=== PATIENT | female | born 1965 | race Caucasian/White ===

== ENCOUNTER 2019-07-11 18:52 | Inpatient (IN) | payer MEDICAID ==
[~2019-07-11] VITALS: Ht 165.1 cm; Wt 38.8 kg
[~2019-07-11 18:52] MED LIST: IBUP-1955 PO; OXYC-132
[2019-07-11] MEDS ORDERED: IV NORMAL SALINE 1000 ML BAG IV ONE ×2 (19:15→20:00)
[2019-07-11 19:27] LABS: BASOPHILS % (AUTO) 0.2 % (0.0-2.0); EOSINOPHILS % (AUTO) 0.5 % (0.0-7.0); HEMATOCRIT 30.5 % (31.2-41.9); LYMPHOCYTES # (AUTO) 0.6 K/uL (20.0-40.0); LYMPHOCYTES % (AUTO) 7.2 % (20.5-51.5); MEAN CORPUSCULAR HEMOGLOBIN 29.6 uug (24.7-32.8); MEAN CORPUSCULAR HGB CONC 33 g/dL (32.3-35.6); MEAN CORPUSCULAR VOLUME 90.3 fL (75.5-95.3); MONOCYTES # (AUTO) 0.4 K/uL (2.0-10.0); MONOCYTES % (AUTO) 5.2 % (0.0-11.0); NEUTROPHILS # (AUTO) 7.5 K/uL (1.8-8.9); NEUTROPHILS % (AUTO) 86.9 % (38.5-71.5); PLATELET COUNT (AUTO) 273 K/uL (179-408); RED BLOOD CELL COUNT(AUTO) 3.38 MIL/uL (3.63-4.92); WHITE BLOOD COUNT (AUTO) 8.6 K/uL (3.8-11.8)
[2019-07-11 19:30] LABS: *BILIRUBIN,URIN NEGATIVE (NEGATIVE); *BLOOD, URINE 2+ (NEGATIVE); *CLARITY,URINE CLOUDY (CLEAR); *COLOR,URINE DARK YELLOW (YELLOW); *KETONES,URINE NEGATIVE (NEGATIVE); LEUKOCYTE ESTERASE ,URINE 1+ (NEGATIVE); NITRITE, URINE NEGATIVE (NEGATIVE); PH,URINE >=9.0 (5.0-8.0); UGLUCOSE NEGATIVE (NEGATIVE)
[2019-07-11 19:37] LABS: CREATININE 0.9 mg/dL (0.6-1.3); POTASSIUM 4.5 mmol/L (3.5-5.1)
[2019-07-11 19:42] LABS: BILIRUBIN,DIRECT 0.2 mg/dL (0.0-0.2); BILIRUBIN,TOTAL 0.6 mg/dL (0.2-1.0); TOTAL PROTEIN, SERUM 7.3 g/dL (6.4-8.2)
[2019-07-11 20:03] LABS: BACTERIA,URINE MANY /HPF (NONE SEEN); RBC,URINE 20-50 /HPF (0-3); SQUAMOUS EPITHELIAL CELL,UR FEW /HPF (NONE SEEN)
[2019-07-11 20:04] LABS: MUCUS,URINE MODERATE /LPF (0-FEW); TRIPLE PHOSPHATE CRYSTAL,UR FEW /HPF (NONE SEEN)
[2019-07-11] MEDS ORDERED: AMIN30LI2 PO (20:40)
[2019-07-11] MEDS ORDERED: MULT-213 PO (20:40)
[2019-07-11] MEDS ORDERED: BENZ1LOZ58 MM (20:40)
[2019-07-11] MEDS ORDERED: LORA-259 PO (20:40)
[2019-07-11] MEDS ORDERED: ASCO500C18 PO (20:40)
[2019-07-11] MEDS ORDERED: ACET325T53 PO (20:40)
[2019-07-11] MEDS ORDERED: LACT1CAP61 PO (20:40)
[2019-07-11] MEDS ORDERED: HYDR2TAB4 PO (20:40)
[2019-07-11] MEDS ORDERED: OXYC10TA49 PO (20:40)
[2019-07-11] MEDS ORDERED: MELO-107 PO (20:40)
[2019-07-11] MEDS ORDERED: ONDA4TAB5 PO (20:40)
[2019-07-11] MEDS ORDERED: GUAI100S9 PO (20:40)
[2019-07-11] MEDS ORDERED: CELE100C PO (20:40)
[2019-07-11] MEDS ORDERED: DIPH25CA83 PO (20:40)
[2019-07-11] MEDS ORDERED: CEFTRIAXONE 1 G in IV DEXTROSE 5% 50 ML IV ONE (20:45)
[2019-07-11] MEDS ORDERED: CEFTRIAXONE /D5W 50ML IVPB **ER PYXIS IV ONE (20:50)
[2019-07-11] MEDS ORDERED: ACETAMINOPHEN 325 MG TABLET PO PRN ×2 (21:00)
[2019-07-11] MEDS ORDERED: Medication Not On Formulary EA (Diphenhydramine Hcl (Benadryl) 25 MG) PO PRN (21:00)
[2019-07-11] MEDS ORDERED: HYDROMORPHONE 1 MG/1 ML DISP.SYRIN IV PRN (21:00)
[2019-07-11 21:30] VITALS: BP 106/59
[2019-07-11] MEDS ORDERED: diphenhydrAMINE 25 MG CAP PO PRN (21:45)
[2019-07-11] MEDS ORDERED: VANCOMYCIN IV 1,000 MG in IV DEXTROSE 5% 250 ML IV ONE (22:00)
[2019-07-11] MEDS: IV NS 1000 ML 1,000 ML IV PRN (22:01)
[2019-07-11] MEDS: ONDANSETRON 4 MG/2 ML VIAL IV PRN (22:07)
[2019-07-11] MEDS ORDERED: VANCOMYCIN 1000 MG VIAL ONE (23:10)
[2019-07-11] MEDS ORDERED: PIPERACILLIN/TAZOBACTAM/D5W 100 ML IV ONE (23:10)
[2019-07-11] MEDS: LORAZEPAM 1 MG TABLET PO PRN (23:56)
[2019-07-12 04:32] VITALS: BP 96/51
[2019-07-12] MEDS: PANTOPRAZOLE SODIUM 40 MG TABLET.DR PO SCH ×2 (06:10→06:12)
[2019-07-12] MEDS: PIPERACILLIN SODIUM/TAZOBACTAM 3.375 G in IV DEXTROSE 5% 50 ML IV SCH ×5 (06:32→21:08)
[2019-07-12 06:45] LABS: BASOPHILS % (AUTO) 0.5 % (0.0-2.0); EOSINOPHILS # (AUTO) 0.2 K/uL (0.0-0.7); EOSINOPHILS % (AUTO) 3.6 % (0.0-7.0); HEMOGLOBIN 9.1 g/dL (10.9-14.3); LYMPHOCYTES # (AUTO) 1.1 K/uL (20.0-40.0); LYMPHOCYTES % (AUTO) 19.7 % (20.5-51.5); MEAN CORPUSCULAR HEMOGLOBIN 29.1 uug (24.7-32.8); MEAN CORPUSCULAR HGB CONC 32 g/dL (32.3-35.6); MEAN CORPUSCULAR VOLUME 89.8 fL (75.5-95.3); MONOCYTES # (AUTO) 0.4 K/uL (2.0-10.0); MONOCYTES % (AUTO) 6.7 % (0.0-11.0); NEUTROPHILS # (AUTO) 3.8 K/uL (1.8-8.9); NEUTROPHILS % (AUTO) 69.5 % (38.5-71.5); PLATELET COUNT (AUTO) 233 K/uL (179-408); RED BLOOD CELL COUNT(AUTO) 3.12 MIL/uL (3.63-4.92); WHITE BLOOD COUNT (AUTO) 5.4 K/uL (3.8-11.8)
[2019-07-12 07:10] LABS: THYROID STIMULATING HORMONE 0.266 mIU/mL (0.358-3.740)
[2019-07-12 07:14] LABS: BILIRUBIN,TOTAL 0.4 mg/dL (0.2-1.0); CREATININE 0.9 mg/dL (0.6-1.3); MAGNESIUM 1.7 mg/dL (1.8-2.4); PHOSPHOROUS 3.3 mg/dL (2.5-4.9); POTASSIUM 4.2 mmol/L (3.5-5.1); TOTAL PROTEIN, SERUM 6.2 g/dL (6.4-8.2)
[2019-07-12] MEDS: PROTEIN SUPPLEMENT (PROSTAT) 30 ML LIQUID PO SCH ×2 (08:00→16:29)
[2019-07-12] MEDS: ACIDOPHILUS/BULGARICUS CHEW TAB PO SCH (08:10)
[2019-07-12] MEDS: MULTIVIT, IRON, MIN NO. 8, FA TABLET PO SCH (08:10)
[2019-07-12] MEDS: ASCORBIC ACID 500 MG TABLET PO SCH (08:10)
[2019-07-12] MEDS: CELECOXIB 100 MG CAPSULE PO SCH ×2 (08:10→16:46)
[2019-07-12] MEDS ORDERED: Medication Not On Formulary EA (Lactobacillus Acidophilus (Acidophilus) 1 EACH) PO SCH (09:00)
[2019-07-12] MEDS ORDERED: Medication Not On Formulary EA (Multivitamins W-Minerals (Multivitamin With Minerals) 1 PO SCH (09:00)
[2019-07-12] MEDS ORDERED: Medication Not On Formulary EA (Amino Acids/Protein Hydrolys (Pro-Stat Liquid) 30 ML) PO SCH (09:00)
[2019-07-12] MEDS ORDERED: Medication Not On Formulary EA (Ascorbic Acid (Vitamin C) 500 MG) PO SCH (09:00)
[2019-07-12] MEDS ORDERED: MAGNESIUM OXIDE 400 MG TABLET PO ONE (11:00)
[2019-07-12 11:12] VITALS: BP 122/68
[2019-07-12] MEDS: OXYCODONE HCL 5 MG TABLET PO PRN ×3 (11:19→23:13)
[2019-07-12] MEDS: IV NS 1000 ML 1,000 ML IV PRN (12:57)
[2019-07-12] MEDS: SOD FERRIC GLUC COMPLX/SUCROSE 125 MG in IV NORMAL SALINE 100 ML IV SCH (13:46)
[2019-07-12] MEDS: GUAIFENESIN SUGAR FREE 100 MG/5 ML UDC PO PRN (13:50)
[2019-07-12] MEDS: HYDROMORPHONE 1 MG/1 ML DISP.SYRIN IV PRN ×2 (14:41→21:07)
[2019-07-12 15:17] VITALS: BP 107/59
[2019-07-12 20:02] VITALS: BP 122/70
[2019-07-12] MEDS ORDERED: VANCOMYCIN IV 500 MG in IV DEXTROSE 5% 100 ML IV SCH (23:00)
[2019-07-13] MEDS: LORAZEPAM 1 MG TABLET PO PRN (00:29)
[2019-07-13] MEDS: IV NS 1000 ML 1,000 ML IV PRN ×2 (01:48→13:28)
[2019-07-13] MEDS: HYDROMORPHONE 1 MG/1 ML DISP.SYRIN IV PRN ×4 (03:44→22:56)
[2019-07-13 04:45] VITALS: BP 98/56
[2019-07-13] MEDS: PIPERACILLIN SODIUM/TAZOBACTAM 3.375 G in IV DEXTROSE 5% 50 ML IV SCH ×3 (05:19→21:15)
[2019-07-13] MEDS: PANTOPRAZOLE SODIUM 40 MG TABLET.DR PO SCH ×2 (06:20→06:28)
[2019-07-13] MEDS: OXYCODONE HCL 5 MG TABLET PO PRN ×3 (06:26→19:51)
[2019-07-13 06:53] LABS: BASOPHILS % (AUTO) 0.4 % (0.0-2.0); EOSINOPHILS # (AUTO) 0.5 K/uL (0.0-0.7); EOSINOPHILS % (AUTO) 10.6 % (0.0-7.0); HEMATOCRIT 25.7 % (31.2-41.9); HEMOGLOBIN 8.4 g/dL (10.9-14.3); LYMPHOCYTES # (AUTO) 0.8 K/uL (20.0-40.0); LYMPHOCYTES % (AUTO) 17.1 % (20.5-51.5); MEAN CORPUSCULAR HEMOGLOBIN 29.2 uug (24.7-32.8); MEAN CORPUSCULAR HGB CONC 33 g/dL (32.3-35.6); MEAN CORPUSCULAR VOLUME 89.9 fL (75.5-95.3); MONOCYTES # (AUTO) 0.3 K/uL (2.0-10.0); MONOCYTES % (AUTO) 7.3 % (0.0-11.0); NEUTROPHILS % (AUTO) 64.6 % (38.5-71.5); PLATELET COUNT (AUTO) 250 K/uL (179-408); RED BLOOD CELL COUNT(AUTO) 2.86 MIL/uL (3.63-4.92); WHITE BLOOD COUNT (AUTO) 4.7 K/uL (3.8-11.8)
[2019-07-13 07:04] LABS: CREATININE 0.8 mg/dL (0.6-1.3); MAGNESIUM 1.6 mg/dL (1.8-2.4); POTASSIUM 4.9 mmol/L (3.5-5.1)
[2019-07-13] MEDS ORDERED: MAGNESIUM OXIDE 400 MG TABLET PO ONE (07:45)
[2019-07-13] MEDS: PROTEIN SUPPLEMENT (PROSTAT) 30 ML LIQUID PO SCH ×2 (08:00→16:40)
[2019-07-13] MEDS: ASCORBIC ACID 500 MG TABLET PO SCH (09:16)
[2019-07-13] MEDS: ACIDOPHILUS/BULGARICUS CHEW TAB PO SCH (09:16)
[2019-07-13] MEDS: CELECOXIB 100 MG CAPSULE PO SCH ×2 (09:17→16:36)
[2019-07-13] MEDS: MULTIVIT, IRON, MIN NO. 8, FA TABLET PO SCH (09:17)
[2019-07-13] MEDS: ONDANSETRON 4 MG/2 ML VIAL IV PRN (10:45)
[2019-07-13 11:44] VITALS: BP 120/69
[2019-07-13] MEDS ORDERED: Z GUARD REMEDY PASTE 57 GM TUBE TOP PRN (12:45)
[2019-07-13] MEDS: SOD FERRIC GLUC COMPLX/SUCROSE 125 MG in IV NORMAL SALINE 100 ML IV SCH (13:41)
[2019-07-13 15:10] VITALS: BP 126/72
[2019-07-13 20:00] VITALS: BP 122/42
[2019-07-14] MEDS: LORAZEPAM 1 MG TABLET PO PRN
[2019-07-14] MEDS: IV NS 1000 ML 1,000 ML IV PRN ×2 (01:41→13:30)
[2019-07-14] MEDS: PIPERACILLIN SODIUM/TAZOBACTAM 3.375 G in IV DEXTROSE 5% 50 ML IV SCH ×3 (05:15→21:42)
[2019-07-14 05:56] VITALS: BP 128/71
[2019-07-14] MEDS: PANTOPRAZOLE SODIUM 40 MG TABLET.DR PO SCH (06:02)
[2019-07-14 07:24] LABS: CREATININE 0.7 mg/dL (0.6-1.3)
[2019-07-14 07:29] LABS: MAGNESIUM 1.5 mg/dL (1.8-2.4)
[2019-07-14] MEDS ORDERED: MAGNESIUM OXIDE 400 MG TABLET PO ONE (07:30)
[2019-07-14] MEDS ORDERED: POTASSIUM CHLORIDE 20 MEQ TAB.PRT.SR PO ONE (07:30)
[2019-07-14 07:33] LABS: BASOPHILS % (AUTO) 0.7 % (0.0-2.0); EOSINOPHILS # (AUTO) 0.4 K/uL (0.0-0.7); EOSINOPHILS % (AUTO) 8.4 % (0.0-7.0); HEMATOCRIT 26.4 % (31.2-41.9); HEMOGLOBIN 8.7 g/dL (10.9-14.3); LYMPHOCYTES # (AUTO) 0.8 K/uL (20.0-40.0); LYMPHOCYTES % (AUTO) 17.8 % (20.5-51.5); MEAN CORPUSCULAR HEMOGLOBIN 29.7 uug (24.7-32.8); MEAN CORPUSCULAR HGB CONC 33 g/dL (32.3-35.6); MEAN CORPUSCULAR VOLUME 90.1 fL (75.5-95.3); MONOCYTES # (AUTO) 0.4 K/uL (2.0-10.0); MONOCYTES % (AUTO) 8.6 % (0.0-11.0); NEUTROPHILS # (AUTO) 2.8 K/uL (1.8-8.9); NEUTROPHILS % (AUTO) 64.5 % (38.5-71.5); PLATELET COUNT (AUTO) 278 K/uL (179-408); RED BLOOD CELL COUNT(AUTO) 2.93 MIL/uL (3.63-4.92); WHITE BLOOD COUNT (AUTO) 4.4 K/uL (3.8-11.8)
[2019-07-14] MEDS: MULTIVIT, IRON, MIN NO. 8, FA TABLET PO SCH (08:29)
[2019-07-14] MEDS: ASCORBIC ACID 500 MG TABLET PO SCH (08:30)
[2019-07-14] MEDS: CELECOXIB 100 MG CAPSULE PO SCH ×2 (08:30→17:36)
[2019-07-14] MEDS: ACIDOPHILUS/BULGARICUS CHEW TAB PO SCH (08:40)
[2019-07-14] MEDS: PROTEIN SUPPLEMENT (PROSTAT) 30 ML LIQUID PO SCH ×2 (08:42→17:47)
[2019-07-14] MEDS: OXYCODONE HCL 5 MG TABLET PO PRN ×2 (09:36→15:22)
[2019-07-14] MEDS: ALBUTEROL SULFATE 2.5 MG/3 ML NEBU NEB PRN ×2 (11:15→16:34)
[2019-07-14 11:37] VITALS: BP 134/77
[2019-07-14] MEDS: HYDROMORPHONE 1 MG/1 ML DISP.SYRIN IV PRN ×3 (12:26→21:42)
[2019-07-14] MEDS: SOD FERRIC GLUC COMPLX/SUCROSE 125 MG in IV NORMAL SALINE 100 ML IV SCH (14:54)
[2019-07-14 15:43] VITALS: BP 142/72
[2019-07-14 20:24] VITALS: BP 133/72
[2019-07-15] MEDS: LORAZEPAM 1 MG TABLET PO PRN ×2 (00:12→23:53)
[2019-07-15] MEDS: OXYCODONE HCL 5 MG TABLET PO PRN ×4 (00:20→21:41)
[2019-07-15] MEDS: HYDROMORPHONE 1 MG/1 ML DISP.SYRIN IV PRN ×5 (03:57→23:52)
[2019-07-15] MEDS: IV NS 1000 ML 1,000 ML IV PRN (04:00)
[2019-07-15] MEDS: PIPERACILLIN SODIUM/TAZOBACTAM 3.375 G in IV DEXTROSE 5% 50 ML IV SCH ×3 (05:38→21:42)
[2019-07-15 05:46] VITALS: BP 137/80
[2019-07-15] MEDS: PANTOPRAZOLE SODIUM 40 MG TABLET.DR PO SCH (06:03)
[2019-07-15 07:35] LABS: BASOPHILS % (AUTO) 0.9 % (0.0-2.0); EOSINOPHILS # (AUTO) 0.1 K/uL (0.0-0.7); EOSINOPHILS % (AUTO) 2.6 % (0.0-7.0); HEMATOCRIT 25.9 % (31.2-41.9); HEMOGLOBIN 8.5 g/dL (10.9-14.3); LYMPHOCYTES # (AUTO) 0.9 K/uL (20.0-40.0); LYMPHOCYTES % (AUTO) 19.7 % (20.5-51.5); MEAN CORPUSCULAR HEMOGLOBIN 29.1 uug (24.7-32.8); MEAN CORPUSCULAR HGB CONC 33 g/dL (32.3-35.6); MEAN CORPUSCULAR VOLUME 88.7 fL (75.5-95.3); MONOCYTES # (AUTO) 0.4 K/uL (2.0-10.0); MONOCYTES % (AUTO) 7.7 % (0.0-11.0); NEUTROPHILS # (AUTO) 3.3 K/uL (1.8-8.9); NEUTROPHILS % (AUTO) 69.1 % (38.5-71.5); PLATELET COUNT (AUTO) 292 K/uL (179-408); RED BLOOD CELL COUNT(AUTO) 2.92 MIL/uL (3.63-4.92); WHITE BLOOD COUNT (AUTO) 4.7 K/uL (3.8-11.8)
[2019-07-15] MEDS: PROTEIN SUPPLEMENT (PROSTAT) 30 ML LIQUID PO SCH ×2 (08:00→16:54)
[2019-07-15 08:02] LABS: CREATININE 0.6 mg/dL (0.6-1.3); MAGNESIUM 1.4 mg/dL (1.8-2.4); PHOSPHOROUS 2.6 mg/dL (2.5-4.9); POTASSIUM 3.5 mmol/L (3.5-5.1)
[2019-07-15 08:05] LABS: THYROID STIMULATING HORMONE 1.118 mIU/mL (0.358-3.740)
[2019-07-15] MEDS: ACIDOPHILUS/BULGARICUS CHEW TAB PO SCH (08:06)
[2019-07-15] MEDS: CELECOXIB 100 MG CAPSULE PO SCH ×2 (08:10→17:00)
[2019-07-15] MEDS: MULTIVIT, IRON, MIN NO. 8, FA TABLET PO SCH (08:10)
[2019-07-15] MEDS: ASCORBIC ACID 500 MG TABLET PO SCH (08:11)
[2019-07-15] MEDS: ALBUTEROL SULFATE 2.5 MG/3 ML NEBU NEB PRN ×2 (09:07→21:15)
[2019-07-15] MEDS: MAGNESIUM SULFATE/D5W 100 ML IV SCH ×2 (09:46→10:54)
[2019-07-15 12:08] VITALS: BP 137/78
[2019-07-15 16:46] VITALS: BP 138/78
[2019-07-15 20:38] VITALS: BP 144/81
[2019-07-15] MEDS: ONDANSETRON 4 MG/2 ML VIAL IV PRN (21:57)
[2019-07-16 04:48] VITALS: BP 118/77
[2019-07-16] MEDS: PIPERACILLIN SODIUM/TAZOBACTAM 3.375 G in IV DEXTROSE 5% 50 ML IV SCH ×2 (05:32→15:08)
[2019-07-16] MEDS: OXYCODONE HCL 5 MG TABLET PO PRN ×2 (06:37→11:38)
[2019-07-16] MEDS: PANTOPRAZOLE SODIUM 40 MG TABLET.DR PO SCH (06:43)
[2019-07-16 07:03] LABS: BASOPHILS % (AUTO) 0.4 % (0.0-2.0); EOSINOPHILS % (AUTO) 0.1 % (0.0-7.0); HEMATOCRIT 27.8 % (31.2-41.9); HEMOGLOBIN 9.1 g/dL (10.9-14.3); LYMPHOCYTES # (AUTO) 1.1 K/uL (20.0-40.0); LYMPHOCYTES % (AUTO) 10.7 % (20.5-51.5); MEAN CORPUSCULAR HEMOGLOBIN 29.8 uug (24.7-32.8); MEAN CORPUSCULAR HGB CONC 33 g/dL (32.3-35.6); MEAN CORPUSCULAR VOLUME 91.3 fL (75.5-95.3); MONOCYTES # (AUTO) 0.6 K/uL (2.0-10.0); NEUTROPHILS # (AUTO) 8.5 K/uL (1.8-8.9); NEUTROPHILS % (AUTO) 82.8 % (38.5-71.5); PLATELET COUNT (AUTO) 318 K/uL (179-408); RED BLOOD CELL COUNT(AUTO) 3.05 MIL/uL (3.63-4.92); WHITE BLOOD COUNT (AUTO) 10.3 K/uL (3.8-11.8)
[2019-07-16 07:17] LABS: CREATININE 0.7 mg/dL (0.6-1.3); MAGNESIUM 1.7 mg/dL (1.8-2.4); POTASSIUM 4.1 mmol/L (3.5-5.1)
[2019-07-16] MEDS ORDERED: MAGNESIUM OXIDE 400 MG TABLET PO ONE (07:45)
[2019-07-16] MEDS: PROTEIN SUPPLEMENT (PROSTAT) 30 ML LIQUID PO SCH ×2 (08:00→16:10)
[2019-07-16] MEDS: HYDROMORPHONE 1 MG/1 ML DISP.SYRIN IV PRN ×3 (08:34→15:09)
[2019-07-16] MEDS: MULTIVIT, IRON, MIN NO. 8, FA TABLET PO SCH (09:07)
[2019-07-16] MEDS: CELECOXIB 100 MG CAPSULE PO SCH ×2 (09:07→16:10)
[2019-07-16] MEDS: ASCORBIC ACID 500 MG TABLET PO SCH (09:07)
[2019-07-16] MEDS: ACIDOPHILUS/BULGARICUS CHEW TAB PO SCH (09:07)
[2019-07-16] MEDS ORDERED: PIPE3.379 IV (11:44)
[2019-07-16 11:52] VITALS: BP 128/83
[2019-07-16] MEDS: GUAIFENESIN SUGAR FREE 100 MG/5 ML UDC PO PRN (15:28)
[2019-07-16 15:53] VITALS: BP 122/85
== END 2019-07-16 17:20 | DRG 720 ==
LOC: ER 18:52 → TELE-TD3 20:55 → TELE3 21:15 → MEDSURG3 21:35
PROVIDERS: ADMIT Internal Medicine; ATTEND Nurse Practitioner Acute Care
DX: A41.9 Sepsis, unspecified organism (principal); E43 Unspecified severe protein-calorie malnutrition; J18.1 Lobar pneumonia, unspecified organism; D68.59 Other primary thrombophilia; G82.20 Paraplegia, unspecified; E83.42 Hypomagnesemia; N39.0 Urinary tract infection, site not specified; Q05.9 Spina bifida, unspecified; F41.9 Anxiety disorder, unspecified; G89.4 Chronic pain syndrome; B96.4 Proteus (mirabilis) (morganii) as the cause of diseases classified elsewhere; Z88.3 Allergy status to other anti-infective agents; Z93.3 Colostomy status; M19.90 Unspecified osteoarthritis, unspecified site; E87.6 Hypokalemia; D50.9 Iron deficiency anemia, unspecified; Z94.5 Skin transplant status
CPT/HCPCS: 36415; 70030-TC; 71045; 83550; 83605; 83690; 83735; 84100; 84443; 84481; 85025; 85730; 87040; 87077; 87086; 87400; 93005; 94640; 94664; A4663; G0378; J0696; J1170; J2405; J2543; J2916; J3370; J3475; J3490; J7030; J7060

== ENCOUNTER 2019-07-16 21:32 | Inpatient (IN) | payer MEDICAID ==
[~2019-07-16] VITALS: Ht 165.1 cm; Wt 37.3 kg
[~2019-07-16 21:32] MED LIST changes: +ACET325T53 PO; +AMIN30LI2 PO; +ASCO500C18 PO; +BENZ1LOZ58 MM; +CELE100C PO; +DIPH25CA83 PO; +GUAI100S9 PO; +HYDR2TAB4 PO; -IBUP-1955 PO; +LACT1CAP61 PO; +LORA-259 PO; +MELO-107 PO; +MULT-213 PO; +ONDA4TAB5 PO; -OXYC-132; +OXYC10TA49 PO; +PIPE3.379 IV
[2019-07-16] MEDS ORDERED: ONDANSETRON 4 MG/2 ML VIAL IV ONE (22:00)
[2019-07-16] MEDS ORDERED: HYDROMORPHONE 1 MG/1 ML DISP.SYRIN IV ONE ×2 (22:00→23:15)
[2019-07-16] MEDS ORDERED: IV NORMAL SALINE 1000 ML BAG IV ONE (22:00)
[2019-07-16] MEDS ORDERED: ONDANSETRON 4 MG/2 ML VIAL ONE (22:08)
[2019-07-16] MEDS ORDERED: HYDROMORPHONE 1 MG/1 ML DISP.SYRIN ONE ×2 (22:08→23:16)
[2019-07-16 22:20] LABS: BASOPHILS % (AUTO) 0.4 % (0.0-2.0); HEMATOCRIT 31.5 % (31.2-41.9); LYMPHOCYTES # (AUTO) 0.8 K/uL (20.0-40.0); LYMPHOCYTES % (AUTO) 6.8 % (20.5-51.5); MEAN CORPUSCULAR HEMOGLOBIN 29.4 uug (24.7-32.8); MEAN CORPUSCULAR HGB CONC 32 g/dL (32.3-35.6); MEAN CORPUSCULAR VOLUME 92.6 fL (75.5-95.3); MONOCYTES # (AUTO) 0.7 K/uL (2.0-10.0); MONOCYTES % (AUTO) 6.3 % (0.0-11.0); NEUTROPHILS # (AUTO) 10.3 K/uL (1.8-8.9); NEUTROPHILS % (AUTO) 86.5 % (38.5-71.5); PLATELET COUNT (AUTO) 449 K/uL (179-408); WHITE BLOOD COUNT (AUTO) 11.9 K/uL (3.8-11.8)
[2019-07-16 22:43] LABS: BILIRUBIN,DIRECT 0.1 mg/dL (0.0-0.2); BILIRUBIN,TOTAL 0.3 mg/dL (0.2-1.0); CREATININE 0.7 mg/dL (0.6-1.3); POTASSIUM 3.1 mmol/L (3.5-5.1); TOTAL PROTEIN, SERUM 6.7 g/dL (6.4-8.2)
[2019-07-16 22:43] LABS: *BILIRUBIN,URIN 1+ (NEGATIVE); *BLOOD, URINE NEGATIVE (NEGATIVE); *CLARITY,URINE CLOUDY (CLEAR); *COLOR,URINE LIGHT YELLOW (YELLOW); *KETONES,URINE 4+ (NEGATIVE); *UROBILINOGEN,URINE 0.2 E.U./dl (NORMAL); LEUKOCYTE ESTERASE ,URINE NEGATIVE (NEGATIVE); NITRITE, URINE NEGATIVE (NEGATIVE); PH,URINE 5.5 (5.0-8.0); UGLUCOSE NEGATIVE (NEGATIVE)
[2019-07-16 22:52] LABS: BACTERIA,URINE NONE SEEN /HPF (NONE SEEN); RBC,URINE 0-3 /HPF (0-3); WBC,URINE 0-3 /HPF (0-3)
[2019-07-16 22:53] LABS: SQUAMOUS EPITHELIAL CELL,UR FEW /HPF (NONE SEEN); URINE AMORPHOUS URATE MODERATE /HPF
[2019-07-16 22:54] LABS: WAXY CASTS,URINE 0-3 /LPF (NONE SEEN)
[2019-07-16] MEDS ORDERED: NITROGLYCERIN 0.4 MG/TAB BOTTLE SL ONE ×2 (23:00→23:09)
[2019-07-16] MEDS ORDERED: ASPIRIN 325 MG TABLET PO ONE (23:00)
[2019-07-16] MEDS ORDERED: ASPIRIN 325 MG TABLET ONE (23:09)
[2019-07-16] MEDS ORDERED: IOHEXOL 350 100 ML INFUS..BTL ONE (23:23)
[2019-07-16] MEDS ORDERED: IV NORMAL SALINE 250 ML IV ONE (23:23)
[2019-07-16] MEDS ORDERED: SWABABLE VALVE TRANSFER SET EA MC ONE (23:23)
[2019-07-17] VITALS (17 sets, daily range): BP systolic 105–125; BP diastolic 65–88
[2019-07-17] MEDS ORDERED: HYDROMORPHONE 1 MG/1 ML DISP.SYRIN ONE (00:10)
[2019-07-17] MEDS ORDERED: HYDROMORPHONE 1 MG/1 ML DISP.SYRIN IV ONE (00:15)
[2019-07-17] MEDS ORDERED: PIPERACILLIN SODIUM/TAZOBACTAM 3.375 G in IV DEXTROSE 5% 50 ML IV ONE (00:45)
[2019-07-17] MEDS ORDERED: VANCOMYCIN IV 1,000 MG in IV DEXTROSE 5% 250 ML IV ONE (00:45)
[2019-07-17] MEDS ORDERED: PIPERACILLIN/TAZOBACTAM/D5W 50 ML IV ONE (00:52)
[2019-07-17] MEDS ORDERED: VANCOMYCIN IV 200 ML ONE (01:25)
[2019-07-17] MEDS ORDERED: ONDANSETRON HCL 4 MG TABLET PO PRN (01:30)
[2019-07-17] MEDS ORDERED: ENOXAPARIN SODIUM 60 MG/0.6 ML DISP.SYRIN SQ ONE (01:50)
[2019-07-17] MEDS ORDERED: IV NS 1000 ML 1,000 ML IV PRN ×2 (01:57→03:45)
[2019-07-17] MEDS ORDERED: Z GUARD REMEDY PASTE 57 GM TUBE TOP PRN ×2 (02:00→03:45)
[2019-07-17] MEDS ORDERED: ACETAMINOPHEN 325 MG TABLET PO PRN ×2 (02:00→03:45)
[2019-07-17] MEDS ORDERED: ONDANSETRON 4 MG/2 ML VIAL IV PRN (02:00)
[2019-07-17 02:29] LABS: VENT MODE Nasal Cannula
[2019-07-17 02:42] LABS: ABG BASE EXCESS -20.1 mmol/L; ABG HCO3 8.2 mmol/L; ABG PCO2 27.8 mmHg (35.0-45.0); ABG PO2 86.5 mmHg (75.0-100.0); ABG SITE LEFT BRACHIAL; ABG TOTAL HEMOGLOBIN 10.1 G/dL (12.0-16.0); COHb 0.3 % (0.5-1.5); MetHb 0.5 % (0.0-1.5); O2Hb 94.2 % (94.0-97.0)
[2019-07-17] MEDS ORDERED: HYDROMORPHONE HCL 2 MG TABLET PO ONE (03:30)
[2019-07-17] MEDS ORDERED: ZOLPIDEM 5 MG TABLET PO PRN (03:45)
[2019-07-17] MEDS ORDERED: ENOXAPARIN SODIUM 40 MG/0.4 ML DISP.SYRIN SQ SCH ×2 (03:45→09:00)
[2019-07-17] MEDS ORDERED: BUMETANIDE INJ 4 MG in IV DEXTROSE 5% 34 ML IV ONE (04:00)
[2019-07-17] MEDS ORDERED: SODIUM BICARBONATE 8.4% 50 MEQ/50 ML DISP.SYRIN IV ONE ×2 (04:30→04:53)
[2019-07-17] MEDS ORDERED: SODIUM BICARBONATE 8.4% 150 MEQ in IV D5W 1000ML 1,000 ML IV PRN (04:30)
[2019-07-17] MEDS ORDERED: BUMETANIDE 1 MG/4 ML VIAL ONE ×2 (04:52→04:53)
[2019-07-17] MEDS ORDERED: CEFEPIME HCL 1 G VIAL ONE (04:56)
[2019-07-17] MEDS ORDERED: ENOXAPARIN SODIUM 40 MG/0.4 ML DISP.SYRIN SQ ONE (05:00)
[2019-07-17] MEDS: CEFEPIME HCL 2 G in IV DEXTROSE 5% 100 ML IV SCH ×2 (05:33→14:13)
[2019-07-17 05:35] LABS: BASOPHILS % (AUTO) 0.2 % (0.0-2.0); HEMATOCRIT 28.6 % (31.2-41.9); LYMPHOCYTES # (AUTO) 0.9 K/uL (20.0-40.0); LYMPHOCYTES % (AUTO) 5.6 % (20.5-51.5); MEAN CORPUSCULAR HEMOGLOBIN 28.7 uug (24.7-32.8); MEAN CORPUSCULAR HGB CONC 31 g/dL (32.3-35.6); MEAN CORPUSCULAR VOLUME 91.4 fL (75.5-95.3); MONOCYTES # (AUTO) 0.8 K/uL (2.0-10.0); MONOCYTES % (AUTO) 4.6 % (0.0-11.0); NEUTROPHILS % (AUTO) 89.6 % (38.5-71.5); PLATELET COUNT (AUTO) 450 K/uL (179-408); RED BLOOD CELL COUNT(AUTO) 3.13 MIL/uL (3.63-4.92); WHITE BLOOD COUNT (AUTO) 16.8 K/uL (3.8-11.8)
[2019-07-17] MEDS: ACIDOPHILUS/BULGARICUS CHEW TAB PO SCH ×3 (05:43→21:25)
[2019-07-17 05:58] LABS: THYROID STIMULATING HORMONE 0.316 mIU/mL (0.358-3.740)
[2019-07-17] MEDS ORDERED: CEFEPIME HCL 2 G in IV DEXTROSE 5% 100 ML IV SCH (06:00)
[2019-07-17 06:29] LABS: ABG BASE EXCESS -16.1 mmol/L; ABG HCO3 10.3 mmol/L; ABG PCO2 26.3 mmHg (35.0-45.0); ABG PH 7.211 (7.350-7.450); ABG PO2 104.2 mmHg (75.0-100.0); ABG SITE LEFT RADIAL; ABG TOTAL HEMOGLOBIN 9.3 G/dL (12.0-16.0); COHb 0.8 % (0.5-1.5); MetHb 0.3 % (0.0-1.5); O2Hb 96.9 % (94.0-97.0); VENT MODE Nasal Cannula
[2019-07-17 06:54] LABS: ACETAMINOPHEN < 2.0 ug/mL (10-30)
[2019-07-17 08:43] LABS: BAND % (MANUAL) 2 % (0-10); LYMPHOCYTES % (MANUAL) 2 % (20-40); METAMYELOCYTES % 1 % (0-1); MONOCYTES % (MANUAL) 4 % (2-10); NEUTROPHILS % (MANUAL) 91 % (42-75)
[2019-07-17 08:54] LABS: BILIRUBIN,TOTAL 0.3 mg/dL (0.2-1.0); CREATININE 0.8 mg/dL (0.6-1.3); MAGNESIUM 1.4 mg/dL (1.8-2.4); PHOSPHOROUS 4.2 mg/dL (2.5-4.9); POTASSIUM 3.3 mmol/L (3.5-5.1)
[2019-07-17] MEDS: PROTEIN SUPPLEMENT (PROSTAT) 30 ML LIQUID PO SCH ×2 (08:55→17:00)
[2019-07-17] MEDS: LORAZEPAM 1 MG TABLET PO PRN (08:57)
[2019-07-17] MEDS ORDERED: Medication Not On Formulary EA (Amino Acids/Protein Hydrolys (Pro-Stat Liquid) 30 ML) PO SCH (09:00)
[2019-07-17] MEDS ORDERED: ENOXAPARIN SODIUM 60 MG/0.6 ML DISP.SYRIN SQ SCH (09:00)
[2019-07-17] MEDS ORDERED: Medication Not On Formulary EA (Meloxicam 15 MG) PO SCH (09:00)
[2019-07-17] MEDS ORDERED: CELECOXIB 100 MG CAPSULE PO SCH (09:00)
[2019-07-17] MEDS: ASPIRIN EC 81 MG TABLET.DR PO SCH (09:01)
[2019-07-17] MEDS: MORPHINE SULFATE 2 MG/1 ML DISP.SYRIN IV PRN ×5 (09:36→21:54)
[2019-07-17] MEDS ORDERED: KETOROLAC TROMETHAMINE 15 MG INJ IVP ONE (10:00)
[2019-07-17] MEDS: FUROSEMIDE 20 MG/2 ML VIAL IV SCH ×2 (10:34→17:17)
[2019-07-17] MEDS: METOPROLOL TARTRATE 25 MG TABLET PO SCH ×3 (10:36→21:35)
[2019-07-17] MEDS: COLCHICINE 0.6 MG TABLET PO SCH ×2 (10:42→17:17)
[2019-07-17] MEDS ORDERED: POTASSIUM CHLORIDE 20 MEQ TAB.PRT.SR PO ONE (12:15)
[2019-07-17] MEDS: MAGNESIUM SULFATE/D5W 100 ML IV SCH ×4 (12:20→15:30)
[2019-07-17] MEDS: ENSURE CLEAR 240 ML LIQUID (MIX BERRY) PO SCH ×2 (12:47→17:00)
[2019-07-17] MEDS: SODIUM HYPOCHLORITE 0.125% 473 ML BOTTLE TP SCH (16:16)
[2019-07-17] MEDS: PIPERACILLIN SODIUM/TAZOBACTAM 3.375 G in IV DEXTROSE 5% 50 ML IV SCH (17:56)
[2019-07-17] MEDS ORDERED: PIPERACILLIN SODIUM/TAZOBACTAM 3.375 G in IV DEXTROSE 5% 50 ML IV SCH (18:00)
[2019-07-17] MEDS ORDERED: IBUPROFEN 800 MG TABLET PO PRN (18:00)
[2019-07-17] MEDS ORDERED: ATORVASTATIN 20 MG TABLET PO SCH (21:00)
[2019-07-17] MEDS: VANCOMYCIN IV 750 MG in IV DEXTROSE 5% 250 ML IV SCH (21:37)
[2019-07-18] VITALS (11 sets, daily range): BP systolic 98–136; BP diastolic 58–88
[2019-07-18] MEDS: MORPHINE SULFATE 2 MG/1 ML DISP.SYRIN IV PRN ×8 (00:42→22:32)
[2019-07-18] MEDS: PIPERACILLIN SODIUM/TAZOBACTAM 3.375 G in IV DEXTROSE 5% 50 ML IV SCH ×3 (02:31→17:05)
[2019-07-18] MEDS: FUROSEMIDE 20 MG/2 ML VIAL IV SCH ×3 (02:31→20:32)
[2019-07-18] MEDS ORDERED: MORPHINE SULFATE 2 MG/1 ML DISP.SYRIN ONE ×2 (02:47→02:51)
[2019-07-18 05:10] LABS: BILIRUBIN,TOTAL 0.2 mg/dL (0.2-1.0); CREATININE 0.9 mg/dL (0.6-1.3); MAGNESIUM 2.2 mg/dL (1.8-2.4)
[2019-07-18 05:14] LABS: BASOPHILS % (AUTO) 0.4 % (0.0-2.0); EOSINOPHILS # (AUTO) 0.2 K/uL (0.0-0.7); EOSINOPHILS % (AUTO) 1.9 % (0.0-7.0); HEMATOCRIT 28.3 % (31.2-41.9); HEMOGLOBIN 9.3 g/dL (10.9-14.3); LYMPHOCYTES # (AUTO) 1.1 K/uL (20.0-40.0); LYMPHOCYTES % (AUTO) 11.8 % (20.5-51.5); MEAN CORPUSCULAR HEMOGLOBIN 28.9 uug (24.7-32.8); MEAN CORPUSCULAR HGB CONC 33 g/dL (32.3-35.6); MEAN CORPUSCULAR VOLUME 87.7 fL (75.5-95.3); MONOCYTES # (AUTO) 0.6 K/uL (2.0-10.0); MONOCYTES % (AUTO) 6.2 % (0.0-11.0); NEUTROPHILS # (AUTO) 7.6 K/uL (1.8-8.9); NEUTROPHILS % (AUTO) 79.7 % (38.5-71.5); PLATELET COUNT (AUTO) 346 K/uL (179-408); RED BLOOD CELL COUNT(AUTO) 3.23 MIL/uL (3.63-4.92); WHITE BLOOD COUNT (AUTO) 9.5 K/uL (3.8-11.8)
[2019-07-18 05:31] LABS: POTASSIUM 2.6 mmol/L (3.5-5.1)
[2019-07-18] MEDS: ACIDOPHILUS/BULGARICUS CHEW TAB PO SCH ×3 (05:34→22:02)
[2019-07-18] MEDS: IV NORMAL SALINE 250 ML IV PRN (06:22)
[2019-07-18] MEDS: POTASSIUM CHLORIDE 50 ML IV SCH ×4 (06:29→13:33)
[2019-07-18] MEDS: ASPIRIN EC 81 MG TABLET.DR PO SCH (08:40)
[2019-07-18] MEDS: COLCHICINE 0.6 MG TABLET PO SCH ×2 (08:40→17:03)
[2019-07-18] MEDS: PROTEIN SUPPLEMENT (PROSTAT) 30 ML LIQUID PO SCH ×2 (08:41→16:13)
[2019-07-18] MEDS: SODIUM HYPOCHLORITE 0.125% 473 ML BOTTLE TP SCH (08:46)
[2019-07-18] MEDS: ENOXAPARIN SODIUM 40 MG/0.4 ML DISP.SYRIN SQ SCH (08:48)
[2019-07-18] MEDS: ENSURE CLEAR 240 ML LIQUID (MIX BERRY) PO SCH ×2 (08:48→16:13)
[2019-07-18] MEDS ORDERED: POTASSIUM CHLORIDE 20 MEQ POWDER PACKET PO ONE (12:45)
[2019-07-18] MEDS: PANTOPRAZOLE SODIUM 40 MG TABLET.DR PO SCH (13:40)
[2019-07-18] MEDS ORDERED: NEUTRA PHOS PACKET PO ONE (15:15)
[2019-07-18] MEDS: VANCOMYCIN IV 750 MG in IV DEXTROSE 5% 250 ML IV SCH (16:10)
[2019-07-18] MEDS: ONDANSETRON 4 MG/2 ML VIAL IV PRN (19:28)
[2019-07-18] MEDS: IBUPROFEN 800 MG TABLET PO PRN (20:32)
[2019-07-18] MEDS: METOPROLOL TARTRATE 25 MG TABLET PO SCH (20:33)
[2019-07-18] MEDS: LORAZEPAM 1 MG TABLET PO PRN (22:32)
[2019-07-18 23:23] LABS: *OCCULT BLOOD STOOL POSITIVE (NEGATIVE)
[2019-07-19] VITALS (7 sets, daily range): BP systolic 93–119; BP diastolic 54–75
[2019-07-19] MEDS: PIPERACILLIN SODIUM/TAZOBACTAM 3.375 G in IV DEXTROSE 5% 50 ML IV SCH ×3 (01:35→17:04)
[2019-07-19] MEDS: MORPHINE SULFATE 2 MG/1 ML DISP.SYRIN IV PRN ×7 (03:53→21:13)
[2019-07-19] MEDS: IV NORMAL SALINE 250 ML IV PRN (03:56)
[2019-07-19 05:39] LABS: CREATININE 0.8 mg/dL (0.6-1.3); POTASSIUM 3.3 mmol/L (3.5-5.1)
[2019-07-19] MEDS: ACIDOPHILUS/BULGARICUS CHEW TAB PO SCH ×3 (06:19→21:21)
[2019-07-19] MEDS: PANTOPRAZOLE SODIUM 40 MG TABLET.DR PO SCH (06:36)
[2019-07-19] MEDS: COLCHICINE 0.6 MG TABLET PO SCH ×2 (07:47→16:35)
[2019-07-19] MEDS: FUROSEMIDE 20 MG/2 ML VIAL IV SCH ×2 (07:47→20:36)
[2019-07-19] MEDS: IBUPROFEN 800 MG TABLET PO PRN ×2 (07:47→16:34)
[2019-07-19] MEDS: PROTEIN SUPPLEMENT (PROSTAT) 30 ML LIQUID PO SCH ×2 (08:00→17:04)
[2019-07-19] MEDS: ENSURE CLEAR 240 ML LIQUID (MIX BERRY) PO SCH ×2 (08:00→17:00)
[2019-07-19 08:34] LABS: BASOPHILS # (AUTO) 0.1 K/uL (0.0-8.0); BASOPHILS % (AUTO) 1.2 % (0.0-2.0); EOSINOPHILS # (AUTO) 0.4 K/uL (0.0-0.7); EOSINOPHILS % (AUTO) 8.1 % (0.0-7.0); HEMATOCRIT 26.3 % (31.2-41.9); HEMOGLOBIN 8.6 g/dL (10.9-14.3); LYMPHOCYTES # (AUTO) 1.3 K/uL (20.0-40.0); LYMPHOCYTES % (AUTO) 24.9 % (20.5-51.5); MEAN CORPUSCULAR HEMOGLOBIN 29.5 uug (24.7-32.8); MEAN CORPUSCULAR HGB CONC 33 g/dL (32.3-35.6); MEAN CORPUSCULAR VOLUME 89.7 fL (75.5-95.3); MONOCYTES # (AUTO) 0.5 K/uL (2.0-10.0); MONOCYTES % (AUTO) 8.7 % (0.0-11.0); NEUTROPHILS % (AUTO) 57.1 % (38.5-71.5); PLATELET COUNT (AUTO) 251 K/uL (179-408); RED BLOOD CELL COUNT(AUTO) 2.93 MIL/uL (3.63-4.92); WHITE BLOOD COUNT (AUTO) 5.3 K/uL (3.8-11.8)
[2019-07-19] MEDS: ENOXAPARIN SODIUM 40 MG/0.4 ML DISP.SYRIN SQ SCH (08:51)
[2019-07-19] MEDS: ASPIRIN EC 81 MG TABLET.DR PO SCH (09:04)
[2019-07-19] MEDS: VANCOMYCIN IV 750 MG in IV DEXTROSE 5% 250 ML IV SCH (09:17)
[2019-07-19] MEDS ORDERED: POTASSIUM CHLORIDE 20 MEQ TAB.PRT.SR PO ONE (09:30)
[2019-07-19] MEDS: ONDANSETRON 4 MG/2 ML VIAL IV PRN (11:23)
[2019-07-19] MEDS ORDERED: POTASSIUM CHLORIDE 20 MEQ POWDER PACKET PO ONE (13:00)
[2019-07-19] MEDS: CARVEDILOL 3.125 MG TABLET PO SCH (15:02)
[2019-07-19] MEDS: MAG HYDROX/AL HYDROX/SIMETH 30 ML LIQUID UDC PO PRN (15:03)
[2019-07-19] MEDS: SODIUM HYPOCHLORITE 0.125% 473 ML BOTTLE TP SCH (15:30)
[2019-07-19] MEDS: LORAZEPAM 1 MG TABLET PO PRN (21:13)
[2019-07-20] VITALS: BP 93/50
[2019-07-20] MEDS: MORPHINE SULFATE 2 MG/1 ML DISP.SYRIN IV PRN ×8 (00:13→22:46)
[2019-07-20] MEDS: PIPERACILLIN SODIUM/TAZOBACTAM 3.375 G in IV DEXTROSE 5% 50 ML IV SCH ×2 (01:55→09:29)
[2019-07-20 04:00] VITALS: BP 91/59
[2019-07-20] MEDS: IV NORMAL SALINE 250 ML IV PRN (04:11)
[2019-07-20 05:11] LABS: BASOPHILS % (AUTO) 0.6 % (0.0-2.0); CREATININE 0.8 mg/dL (0.6-1.3); EOSINOPHILS # (AUTO) 0.5 K/uL (0.0-0.7); EOSINOPHILS % (AUTO) 9.3 % (0.0-7.0); HEMATOCRIT 25.7 % (31.2-41.9); HEMOGLOBIN 8.5 g/dL (10.9-14.3); LYMPHOCYTES % (AUTO) 17.9 % (20.5-51.5); MAGNESIUM 1.4 mg/dL (1.8-2.4); MEAN CORPUSCULAR HEMOGLOBIN 29.1 uug (24.7-32.8); MEAN CORPUSCULAR HGB CONC 33 g/dL (32.3-35.6); MEAN CORPUSCULAR VOLUME 88.1 fL (75.5-95.3); MONOCYTES # (AUTO) 0.3 K/uL (2.0-10.0); MONOCYTES % (AUTO) 5.6 % (0.0-11.0); NEUTROPHILS # (AUTO) 3.8 K/uL (1.8-8.9); NEUTROPHILS % (AUTO) 66.6 % (38.5-71.5); PHOSPHOROUS 2.1 mg/dL (2.5-4.9); PLATELET COUNT (AUTO) 223 K/uL (179-408); POTASSIUM 3.3 mmol/L (3.5-5.1); RED BLOOD CELL COUNT(AUTO) 2.92 MIL/uL (3.63-4.92); WHITE BLOOD COUNT (AUTO) 5.8 K/uL (3.8-11.8)
[2019-07-20] MEDS: ACIDOPHILUS/BULGARICUS CHEW TAB PO SCH ×3 (06:09→21:09)
[2019-07-20] MEDS: PANTOPRAZOLE SODIUM 40 MG TABLET.DR PO SCH (06:24)
[2019-07-20 08:00] VITALS: BP 104/64
[2019-07-20] MEDS: ENSURE CLEAR 240 ML LIQUID (MIX BERRY) PO SCH ×2 (08:00→17:48)
[2019-07-20] MEDS: PROTEIN SUPPLEMENT (PROSTAT) 30 ML LIQUID PO SCH ×2 (08:00→17:49)
[2019-07-20] MEDS: CARVEDILOL 3.125 MG TABLET PO SCH ×2 (08:05→18:14)
[2019-07-20] MEDS: ASPIRIN EC 81 MG TABLET.DR PO SCH (08:05)
[2019-07-20] MEDS: FUROSEMIDE 20 MG/2 ML VIAL IV SCH (08:05)
[2019-07-20] MEDS: ENOXAPARIN SODIUM 40 MG/0.4 ML DISP.SYRIN SQ SCH (08:06)
[2019-07-20] MEDS: COLCHICINE 0.6 MG TABLET PO SCH ×2 (08:07→17:48)
[2019-07-20] MEDS: SODIUM HYPOCHLORITE 0.125% 473 ML BOTTLE TP SCH (08:31)
[2019-07-20 12:34] VITALS: BP 91/58
[2019-07-20] MEDS ORDERED: POTASSIUM CHLORIDE 20 MEQ TAB.PRT.SR PO ONE (14:00)
[2019-07-20] MEDS: MAGNESIUM SULFATE/D5W 100 ML IV SCH ×4 (15:03→19:37)
[2019-07-20 16:03] VITALS: BP 110/73
[2019-07-20] MEDS ORDERED: NEUTRA PHOS PACKET PO ONE (17:15)
[2019-07-20] MEDS ORDERED: POTASSIUM CHLORIDE 20 MEQ POWDER PACKET PO ONE (17:15)
[2019-07-20 19:57] VITALS: BP 103/75
[2019-07-20] MEDS: MAG HYDROX/AL HYDROX/SIMETH 30 ML LIQUID UDC PO PRN (21:09)
[2019-07-20] MEDS: LORAZEPAM 1 MG TABLET PO PRN (23:21)
[2019-07-21] VITALS: BP 107/65
[2019-07-21] MEDS: MORPHINE SULFATE 2 MG/1 ML DISP.SYRIN IV PRN ×7 (01:59→23:44)
[2019-07-21 02:10] LABS: ALDOSTERONE 3.5 ng/dL (0.0-30.0)
[2019-07-21 04:00] VITALS: BP 125/85
[2019-07-21] MEDS: PANTOPRAZOLE SODIUM 40 MG TABLET.DR PO SCH (06:03)
[2019-07-21] MEDS: ACIDOPHILUS/BULGARICUS CHEW TAB PO SCH ×3 (06:03→21:21)
[2019-07-21 08:02] LABS: CREATININE 0.6 mg/dL (0.6-1.3); MAGNESIUM 2.6 mg/dL (1.8-2.4); POTASSIUM 4.5 mmol/L (3.5-5.1)
[2019-07-21] MEDS: PROTEIN SUPPLEMENT (PROSTAT) 30 ML LIQUID PO SCH ×2 (08:32→17:00)
[2019-07-21] MEDS: ENSURE CLEAR 240 ML LIQUID (MIX BERRY) PO SCH ×2 (08:32→17:12)
[2019-07-21] MEDS: CARVEDILOL 3.125 MG TABLET PO SCH ×2 (08:32→17:54)
[2019-07-21] MEDS: ASPIRIN EC 81 MG TABLET.DR PO SCH (08:33)
[2019-07-21] MEDS: COLCHICINE 0.6 MG TABLET PO SCH ×2 (08:33→17:12)
[2019-07-21] MEDS: SODIUM HYPOCHLORITE 0.125% 473 ML BOTTLE TP SCH (08:33)
[2019-07-21] MEDS: FUROSEMIDE 20 MG/2 ML VIAL IV SCH (08:33)
[2019-07-21] MEDS: ENOXAPARIN SODIUM 40 MG/0.4 ML DISP.SYRIN SQ SCH (08:35)
[2019-07-21 11:45] VITALS: BP 114/74
[2019-07-21 16:00] VITALS: BP 113/65
[2019-07-21 20:00] VITALS: BP 117/76
[2019-07-21] MEDS: LORAZEPAM 1 MG TABLET PO PRN (22:50)
[2019-07-22] MEDS: MORPHINE SULFATE 2 MG/1 ML DISP.SYRIN IV PRN ×7 (02:49→23:26)
[2019-07-22 04:00] VITALS: BP 107/65
[2019-07-22] MEDS: ACIDOPHILUS/BULGARICUS CHEW TAB PO SCH ×3 (06:04→21:04)
[2019-07-22] MEDS: PANTOPRAZOLE SODIUM 40 MG TABLET.DR PO SCH (06:05)
[2019-07-22] MEDS: PROTEIN SUPPLEMENT (PROSTAT) 30 ML LIQUID PO SCH ×2 (08:00→17:00)
[2019-07-22 08:09] LABS: BASOPHILS % (AUTO) 0.5 % (0.0-2.0); EOSINOPHILS # (AUTO) 0.4 K/uL (0.0-0.7); EOSINOPHILS % (AUTO) 5.6 % (0.0-7.0); HEMATOCRIT 28.2 % (31.2-41.9); HEMOGLOBIN 9.3 g/dL (10.9-14.3); LYMPHOCYTES # (AUTO) 1.3 K/uL (20.0-40.0); MEAN CORPUSCULAR HEMOGLOBIN 29.5 uug (24.7-32.8); MEAN CORPUSCULAR HGB CONC 33 g/dL (32.3-35.6); MEAN CORPUSCULAR VOLUME 89.8 fL (75.5-95.3); MONOCYTES # (AUTO) 0.5 K/uL (2.0-10.0); MONOCYTES % (AUTO) 6.2 % (0.0-11.0); NEUTROPHILS # (AUTO) 5.7 K/uL (1.8-8.9); NEUTROPHILS % (AUTO) 71.7 % (38.5-71.5); PLATELET COUNT (AUTO) 274 K/uL (179-408); RED BLOOD CELL COUNT(AUTO) 3.14 MIL/uL (3.63-4.92); WHITE BLOOD COUNT (AUTO) 7.9 K/uL (3.8-11.8)
[2019-07-22 08:36] LABS: CREATININE 0.7 mg/dL (0.6-1.3); MAGNESIUM 1.6 mg/dL (1.8-2.4); PHOSPHOROUS 3.2 mg/dL (2.5-4.9); POTASSIUM 4.5 mmol/L (3.5-5.1)
[2019-07-22] MEDS: CARVEDILOL 3.125 MG TABLET PO SCH ×2 (09:01→17:26)
[2019-07-22] MEDS: ENSURE CLEAR 240 ML LIQUID (MIX BERRY) PO SCH ×2 (09:01→17:26)
[2019-07-22] MEDS: ASPIRIN EC 81 MG TABLET.DR PO SCH (09:02)
[2019-07-22] MEDS: FUROSEMIDE 20 MG/2 ML VIAL IV SCH (09:02)
[2019-07-22] MEDS: COLCHICINE 0.6 MG TABLET PO SCH ×2 (09:02→17:25)
[2019-07-22] MEDS: ENOXAPARIN SODIUM 40 MG/0.4 ML DISP.SYRIN SQ SCH (09:03)
[2019-07-22] MEDS: SODIUM HYPOCHLORITE 0.125% 473 ML BOTTLE TP SCH (09:04)
[2019-07-22 10:06] LABS: RENIN 0.6 ng/mL/hr (0.167-5.380)
[2019-07-22 11:00] VITALS: BP 116/68
[2019-07-22] MEDS: MAGNESIUM SULFATE/D5W 100 ML IV SCH ×2 (14:34→15:29)
[2019-07-22 15:00] VITALS: BP 124/74
[2019-07-22] MEDS: IBUPROFEN 800 MG TABLET PO SCH ×2 (15:30→21:04)
[2019-07-22 20:38] VITALS: BP 122/68
[2019-07-22] MEDS: LORAZEPAM 1 MG TABLET PO PRN (20:38)
[2019-07-23 00:14] VITALS: BP 118/67
[2019-07-23] MEDS: MORPHINE SULFATE 2 MG/1 ML DISP.SYRIN IV PRN ×7 (02:42→23:11)
[2019-07-23 04:45] VITALS: BP 122/75
[2019-07-23] MEDS: PANTOPRAZOLE SODIUM 40 MG TABLET.DR PO SCH (06:16)
[2019-07-23] MEDS: IBUPROFEN 800 MG TABLET PO SCH ×3 (06:16→21:22)
[2019-07-23] MEDS: ACIDOPHILUS/BULGARICUS CHEW TAB PO SCH ×3 (06:16→21:22)
[2019-07-23 06:58] LABS: BASOPHILS % (AUTO) 0.7 % (0.0-2.0); EOSINOPHILS # (AUTO) 0.5 K/uL (0.0-0.7); EOSINOPHILS % (AUTO) 7.6 % (0.0-7.0); HEMATOCRIT 28.3 % (31.2-41.9); HEMOGLOBIN 9.1 g/dL (10.9-14.3); LYMPHOCYTES # (AUTO) 1.4 K/uL (20.0-40.0); LYMPHOCYTES % (AUTO) 19.8 % (20.5-51.5); MEAN CORPUSCULAR HEMOGLOBIN 29.2 uug (24.7-32.8); MEAN CORPUSCULAR HGB CONC 32 g/dL (32.3-35.6); MEAN CORPUSCULAR VOLUME 90.9 fL (75.5-95.3); MONOCYTES # (AUTO) 0.5 K/uL (2.0-10.0); MONOCYTES % (AUTO) 7.8 % (0.0-11.0); NEUTROPHILS # (AUTO) 4.5 K/uL (1.8-8.9); NEUTROPHILS % (AUTO) 64.1 % (38.5-71.5); PLATELET COUNT (AUTO) 293 K/uL (179-408); RED BLOOD CELL COUNT(AUTO) 3.11 MIL/uL (3.63-4.92); WHITE BLOOD COUNT (AUTO) 6.9 K/uL (3.8-11.8)
[2019-07-23 07:37] LABS: CREATININE 0.7 mg/dL (0.6-1.3); MAGNESIUM 2.1 mg/dL (1.8-2.4); PHOSPHOROUS 3.6 mg/dL (2.5-4.9); POTASSIUM 4.7 mmol/L (3.5-5.1)
[2019-07-23] MEDS: PROTEIN SUPPLEMENT (PROSTAT) 30 ML LIQUID PO SCH ×2 (08:00→17:00)
[2019-07-23] MEDS: COLCHICINE 0.6 MG TABLET PO SCH ×2 (08:30→17:17)
[2019-07-23] MEDS: FUROSEMIDE 40 MG TABLET PO SCH (08:30)
[2019-07-23] MEDS: ASPIRIN EC 81 MG TABLET.DR PO SCH (08:30)
[2019-07-23] MEDS: ENSURE CLEAR 240 ML LIQUID (MIX BERRY) PO SCH ×2 (08:30→17:18)
[2019-07-23] MEDS: ENOXAPARIN SODIUM 40 MG/0.4 ML DISP.SYRIN SQ SCH (08:32)
[2019-07-23] MEDS: SODIUM HYPOCHLORITE 0.125% 473 ML BOTTLE TP SCH (08:34)
[2019-07-23] MEDS: CARVEDILOL 3.125 MG TABLET PO SCH ×2 (08:35→17:17)
[2019-07-23 12:09] VITALS: BP 126/72
[2019-07-23] MEDS: MAG HYDROX/AL HYDROX/SIMETH 30 ML LIQUID UDC PO PRN (14:23)
[2019-07-23 16:08] VITALS: BP 106/69
[2019-07-23 20:21] VITALS: BP 113/70
[2019-07-23] MEDS: LORAZEPAM 1 MG TABLET PO PRN (20:42)
[2019-07-24] VITALS: BP 107/69
[2019-07-24] MEDS: MORPHINE SULFATE 2 MG/1 ML DISP.SYRIN IV PRN ×8 (02:11→23:20)
[2019-07-24 04:00] VITALS: BP 119/71
[2019-07-24] MEDS: ACIDOPHILUS/BULGARICUS CHEW TAB PO SCH ×3 (05:02→21:23)
[2019-07-24] MEDS: IBUPROFEN 800 MG TABLET PO SCH (05:02)
[2019-07-24] MEDS: PANTOPRAZOLE SODIUM 40 MG TABLET.DR PO SCH (06:04)
[2019-07-24] MEDS: PROTEIN SUPPLEMENT (PROSTAT) 30 ML LIQUID PO SCH ×2 (08:00→17:00)
[2019-07-24] MEDS: CARVEDILOL 3.125 MG TABLET PO SCH (08:24)
[2019-07-24] MEDS: ASPIRIN EC 81 MG TABLET.DR PO SCH (08:24)
[2019-07-24] MEDS: COLCHICINE 0.6 MG TABLET PO SCH ×2 (08:24→17:38)
[2019-07-24] MEDS: FUROSEMIDE 40 MG TABLET PO SCH (08:24)
[2019-07-24] MEDS: SODIUM HYPOCHLORITE 0.125% 473 ML BOTTLE TP SCH (08:27)
[2019-07-24] MEDS: ENOXAPARIN SODIUM 40 MG/0.4 ML DISP.SYRIN SQ SCH (08:27)
[2019-07-24] MEDS: ENSURE CLEAR 240 ML LIQUID (MIX BERRY) PO SCH ×2 (08:28→17:39)
[2019-07-24 11:48] VITALS: BP 103/63
[2019-07-24] MEDS: IBUPROFEN 400 MG TABLET PO SCH ×2 (13:33→21:23)
[2019-07-24] MEDS ORDERED: IBUPROFEN 800 MG TABLET PO SCH (14:00)
[2019-07-24 15:52] VITALS: BP 106/68
[2019-07-24] MEDS: CARVEDILOL 6.25 MG TABLET PO SCH (17:39)
[2019-07-24] MEDS ORDERED: CARVEDILOL 3.125 MG TABLET PO SCH (18:00)
[2019-07-24] MEDS: SIMETHICONE 80 MG TAB.CHEW PO PRN (18:26)
[2019-07-24 20:00] VITALS: BP 105/66
[2019-07-24] MEDS: LORAZEPAM 1 MG TABLET PO PRN (20:16)
[2019-07-25] VITALS: BP 108/57
[2019-07-25 04:00] VITALS: BP 108/68
[2019-07-25] MEDS: ACIDOPHILUS/BULGARICUS CHEW TAB PO SCH ×3 (06:00→21:20)
[2019-07-25] MEDS: IBUPROFEN 400 MG TABLET PO SCH ×3 (06:00→21:20)
[2019-07-25] MEDS: MORPHINE SULFATE 2 MG/1 ML DISP.SYRIN IV PRN ×5 (06:04→20:35)
[2019-07-25] MEDS: PANTOPRAZOLE SODIUM 40 MG TABLET.DR PO SCH ×2 (06:05→16:43)
[2019-07-25] MEDS: ENSURE CLEAR 240 ML LIQUID (MIX BERRY) PO SCH ×2 (08:00→17:21)
[2019-07-25] MEDS: CARVEDILOL 6.25 MG TABLET PO SCH ×2 (08:00→17:23)
[2019-07-25] MEDS: PROTEIN SUPPLEMENT (PROSTAT) 30 ML LIQUID PO SCH ×2 (08:00→17:00)
[2019-07-25] MEDS: ASPIRIN EC 81 MG TABLET.DR PO SCH ×2 (09:00→13:39)
[2019-07-25] MEDS: COLCHICINE 0.6 MG TABLET PO SCH ×2 (09:00→16:43)
[2019-07-25] MEDS: SODIUM HYPOCHLORITE 0.125% 473 ML BOTTLE TP SCH (09:09)
[2019-07-25] MEDS: ENOXAPARIN SODIUM 40 MG/0.4 ML DISP.SYRIN SQ SCH (13:37)
[2019-07-25 16:00] VITALS: BP 107/67
[2019-07-25 20:40] VITALS: BP 108/70
[2019-07-25] MEDS: LORAZEPAM 1 MG TABLET PO PRN (21:20)
[2019-07-26] VITALS: BP 110/64
[2019-07-26] MEDS: MORPHINE SULFATE 2 MG/1 ML DISP.SYRIN IV PRN ×7 (00:09→18:42)
[2019-07-26 04:00] VITALS: BP 125/74
[2019-07-26] MEDS: ACIDOPHILUS/BULGARICUS CHEW TAB PO SCH ×3 (05:59→20:52)
[2019-07-26] MEDS: IBUPROFEN 400 MG TABLET PO SCH ×3 (06:00→20:52)
[2019-07-26] MEDS: PANTOPRAZOLE SODIUM 40 MG TABLET.DR PO SCH ×2 (06:08→17:34)
[2019-07-26 06:51] LABS: BASOPHILS # (AUTO) 0.1 K/uL (0.0-8.0); BASOPHILS % (AUTO) 1.3 % (0.0-2.0); EOSINOPHILS # (AUTO) 0.4 K/uL (0.0-0.7); EOSINOPHILS % (AUTO) 6.1 % (0.0-7.0); HEMATOCRIT 27.7 % (31.2-41.9); HEMOGLOBIN 9.1 g/dL (10.9-14.3); LYMPHOCYTES # (AUTO) 1.3 K/uL (20.0-40.0); LYMPHOCYTES % (AUTO) 20.4 % (20.5-51.5); MEAN CORPUSCULAR HEMOGLOBIN 29.5 uug (24.7-32.8); MEAN CORPUSCULAR HGB CONC 33 g/dL (32.3-35.6); MEAN CORPUSCULAR VOLUME 89.9 fL (75.5-95.3); MONOCYTES # (AUTO) 0.7 K/uL (2.0-10.0); MONOCYTES % (AUTO) 11.1 % (0.0-11.0); NEUTROPHILS # (AUTO) 3.8 K/uL (1.8-8.9); NEUTROPHILS % (AUTO) 61.1 % (38.5-71.5); PLATELET COUNT (AUTO) 368 K/uL (179-408); RED BLOOD CELL COUNT(AUTO) 3.09 MIL/uL (3.63-4.92); WHITE BLOOD COUNT (AUTO) 6.2 K/uL (3.8-11.8)
[2019-07-26] MEDS: PROTEIN SUPPLEMENT (PROSTAT) 30 ML LIQUID PO SCH ×2 (08:00→17:00)
[2019-07-26] MEDS: ENSURE CLEAR 240 ML LIQUID (MIX BERRY) PO SCH ×2 (08:00→17:00)
[2019-07-26] MEDS: CARVEDILOL 6.25 MG TABLET PO SCH ×2 (08:46→17:40)
[2019-07-26] MEDS: ASPIRIN EC 81 MG TABLET.DR PO SCH (08:47)
[2019-07-26] MEDS: COLCHICINE 0.6 MG TABLET PO SCH ×2 (08:47→17:34)
[2019-07-26] MEDS: LISINOPRIL 5 MG TABLET PO SCH (08:48)
[2019-07-26] MEDS: ENOXAPARIN SODIUM 40 MG/0.4 ML DISP.SYRIN SQ SCH (08:49)
[2019-07-26] MEDS: SODIUM HYPOCHLORITE 0.125% 473 ML BOTTLE TP SCH (08:57)
[2019-07-26 11:25] VITALS: BP 116/82
[2019-07-26] MEDS: SIMETHICONE 80 MG TAB.CHEW PO PRN (12:14)
[2019-07-26] MEDS ORDERED: PANT40TA2 PO (12:57)
[2019-07-26] MEDS ORDERED: Colchicine PO (12:57)
[2019-07-26] MEDS ORDERED: ASPI-618 PO (12:57)
[2019-07-26] MEDS ORDERED: CARV6.252 PO (12:57)
[2019-07-26] MEDS ORDERED: IBUP-1953 PO (12:57)
[2019-07-26] MEDS ORDERED: LISI-607 PO (12:57)
[2019-07-26 15:21] VITALS: BP 99/59
[2019-07-26 17:34] VITALS: BP 111/75
[2019-07-26] MEDS: LORAZEPAM 1 MG TABLET PO PRN (20:52)
[2019-07-27] VITALS: BP 114/69
[2019-07-27 04:30] VITALS: BP 111/75
[2019-07-27] MEDS: ACIDOPHILUS/BULGARICUS CHEW TAB PO SCH ×2 (06:39→14:45)
[2019-07-27] MEDS: IBUPROFEN 400 MG TABLET PO SCH ×2 (06:39→14:45)
[2019-07-27] MEDS: PANTOPRAZOLE SODIUM 40 MG TABLET.DR PO SCH ×2 (06:39→16:05)
[2019-07-27] MEDS: PROTEIN SUPPLEMENT (PROSTAT) 30 ML LIQUID PO SCH ×2 (08:00→16:06)
[2019-07-27] MEDS: ENSURE CLEAR 240 ML LIQUID (MIX BERRY) PO SCH ×2 (08:00→16:06)
[2019-07-27] MEDS: LISINOPRIL 5 MG TABLET PO SCH (09:00)
[2019-07-27] MEDS: ASPIRIN EC 81 MG TABLET.DR PO SCH (09:27)
[2019-07-27] MEDS: COLCHICINE 0.6 MG TABLET PO SCH ×2 (09:27→16:05)
[2019-07-27] MEDS: CARVEDILOL 6.25 MG TABLET PO SCH ×2 (09:28→16:05)
[2019-07-27] MEDS: ENOXAPARIN SODIUM 40 MG/0.4 ML DISP.SYRIN SQ SCH (09:29)
[2019-07-27] MEDS: SODIUM HYPOCHLORITE 0.125% 473 ML BOTTLE TP SCH (09:32)
[2019-07-27 11:09] VITALS: BP_SYST 114; BP_SYST 140; BP_DIAS 64; BP_DIAS 72
[2019-07-27 15:12] VITALS: BP 125/75
[2019-07-27] MEDS ORDERED: MORPHINE SULFATE 2 MG/1 ML DISP.SYRIN IM PRN (16:00)
[2019-07-27 16:05] VITALS: BP 125/75
== END 2019-07-27 18:50 | DRG 207 ==
LOC: ER 21:32 → TELE3 07-17 01:54 → TELE-TD3 07-17 05:40 → CCU 07-17 08:43 → TELE3 07-20 10:24
PROVIDERS: ADMIT Nurse Practitioner Acute Care; ATTEND Internal Medicine
PROC: 05H933Z Insertion of Infusion Device into Right Brachial Vein, Percutaneous Approach (ICD-10-PCS; principal; 2019-07-17)
PROC: B2211ZZ Computerized Tomography (CT Scan) of Multiple Coronary Arteries using Low Osmolar Contrast (ICD-10-PCS; 2019-07-25)
DX: I51.4 Myocarditis, unspecified (principal); I21.A1 Myocardial infarction type 2; E43 Unspecified severe protein-calorie malnutrition; I50.23 Acute on chronic systolic (congestive) heart failure; J15.6 Pneumonia due to other Gram-negative bacteria; J91.8 Pleural effusion in other conditions classified elsewhere; E83.42 Hypomagnesemia; D68.59 Other primary thrombophilia; L89.153 Pressure ulcer of sacral region, stage 3; I42.9 Cardiomyopathy, unspecified; E87.2 Acidosis; F11.20 Opioid dependence, uncomplicated; G82.20 Paraplegia, unspecified; Q05.9 Spina bifida, unspecified; Z68.1 Body mass index [BMI] 19.9 or less, adult; G89.4 Chronic pain syndrome; E87.6 Hypokalemia; E78.5 Hyperlipidemia, unspecified; E05.90 Thyrotoxicosis, unspecified without thyrotoxic crisis or storm; F41.9 Anxiety disorder, unspecified; J98.11 Atelectasis; K52.9 Noninfective gastroenteritis and colitis, unspecified; L08.89 Other specified local infections of the skin and subcutaneous tissue; Z79.899 Other long term (current) drug therapy; Z87.440 Personal history of urinary (tract) infections; Z88.3 Allergy status to other anti-infective agents; Z86.711 Personal history of pulmonary embolism; M19.90 Unspecified osteoarthritis, unspecified site; K29.70 Gastritis, unspecified, without bleeding; Z74.09 Other reduced mobility; M81.0 Age-related osteoporosis without current pathological fracture; D50.0 Iron deficiency anemia secondary to blood loss (chronic); M54.5 Low back pain
CPT/HCPCS: 36415; 36600; 70030-TC; 71045; 71275; 82088; 83520; 83605; 83735; 84100; 84244; 84443; 85025; 85730; 86256; 87040; 87070; 87086; 87400; 87806; 93005; 93307; A4663; G0378; G0480-TC; J0692; J1170; J1650; J1885; J1940; J2270; J2405; J2543; J3370; J3475; J3480; J3490; J7030; J7050; J7060; J7070; Q0162; Q9967